=== PATIENT | female | born 1945 | race Caucasian/White ===

== ENCOUNTER 2017-02-23 12:24 | Observation (INO) | payer OTHER, BC ==
[2017-02-23] MEDS ORDERED: LIDOCAINE 5% 1 EA PATCH TD ONE (13:49)
--- NOTE | 2017-02-23 13:51 | EDPHY ---
H & P Time Seen by Provider: 02/23/17 13:21 HPI/ROS: CHIEF COMPLAINT: Neck pain HISTORY OF PRESENT ILLNESS: This 71-year-old woman was seen 3 times for headache in the beginning of January and ultimately diagnosed with a clot in her transverse sinus on MRI. She was hospitalized at [facility] and ultimately discharged on January 24 and warfarin. She was doing well and started getting worse on February 16 when she had a cough and upper respiratory infection for 3 days. Since February 19 he has had a new headache and neck pain and was diagnosed with of the subdural on CT. Her last imaging was in MRV on February 19 at [facility] which showed stable venous sinus clot and stable subdural. Today she presents with neck pain last 4 days. Her most comfortable position is flexed and she has pain on trying to extend her neck and hold her head upright. This pain is moderate at rest but severe with movement and does not radiate to arms or legs, but does go a little bit to her upper back. It is not associated with weakness or numbness in her arms or legs or fever. No new trauma. Her primary care physician called Dr. Nba Browne from Neurosurgery today, and she was asked to come the emergency department for evaluation. REVIEW OF SYSTEMS: Eye: no change in vision ENT: no sore throat Cardiac: no chest pain or syncope Pulmonary: no cough or SOB Abdomen: no vomiting, diarrhea, abdominal pain Musculoskeletal: HPI Skin: no rash Neuro: HPI, no vertigo. She has been a little bit off balance since she was diagnosed a month ago. Constitutional: no fever : no urinary symptoms A comprehensive 10 point review of systems is otherwise negative aside from elements mentioned in the history of present illness. PAST MEDICAL HISTORY: Includes arthritis, asthma, GERD, hypertension, irritable bowel, breast cancer. Social history: Here with her who is a retired Dr. General Appearance: Alert and conversant, cooperative. Eyes: No scleral icterus. ENT, Mouth: Normal mucous membranes. Respiratory: Normal respiratory effort, breath sounds equal, lungs are clear to auscultation. Cardiovascular: Regular rate and rhythm. Gastrointestinal: Abdomen is soft and non tender. Neurological: Alert and oriented x3. Normally conversant. Face symmetric, normal movement and sensation in all extremities. Normal strength in deltoid, triceps, biceps, wrist extensors, intrinsics. Patellar reflexes not detectable , but the patient has bilateral knee replacement. Ankle reflexes 1+, toes downgoing, no clonus. Skin: Warm and dry, no rashes. Musculoskeletal: Patient's neck is flexed and it is painful with active or passive extension. Psychiatric: Not agitated. Emergency Department course/MDM: 1351: Toshia, will have neurosurgery consult in ED. Lidocaine patch requested by patient, prescribed. 1435: Seen by Dr. Nba Browne the emergency department, recommends admission, CT angiogram of the head and neck, MRI of the cervical spine to evaluate for spinal epidural hematoma. I think meningitis would be unlikely with the patient having most comfort with her neck flexed. 1607: Helgans, left side venous sinus thrombosis but otherwise angiography is negative for dissection or arterial stenosis. 1645: MRI shows disk herniation C4-5, no epidural hematoma, no cord compression ; Helgans. Smoking Status: Never smoked Constitutional: Initial Vital Signs Temperature (C) 36.5 C 02/23/17 12:40 Heart Rate 80 02/23/17 12:40 Respiratory Rate 16 02/23/17 12:40 Blood Pressure 105/74 02/23/17 12:40 O2 Sat (%) 96 02/23/17 12:40 O2 Delivery Mode Room Air Allergies/Adverse Reactions: Penicillins Allergy (Verified 02/23/17 12:44) scopolamine Allergy (Verified 02/23/17 12:44) Home Medications: Medication Instructions Recorded Acetaminophen [Acetaminophen Extra 500 - 1,000 mg PO TID PRN 02/23/17 Strength] Albuterol Sulfate [Proair Hfa] 8.5 gm IH DAILY PRN 02/23/17 Fluticasone Hfa 220 Mcg [Flovent 1 puffs IH DAILY PRN 02/23/17 220 MCG Hfa MDI (*)] HYDROcodone/CHLORPHEN P-STIREX 2.5 - 5 ml PO BID PRN 02/23/17 [Hydrocodone-Chlorphen ER Susp] Letrozole [Femara 2.5 mg (*)] 2.5 mg PO HS 02/23/17 Metoprolol Tartrate 25 mg PO BID 02/23/17 Pravastatin Sodium [Pravachol] 40 mg PO HS 02/23/17 Spironolactone [Aldactone 25 MG 25 mg PO DAILY 02/23/17 (*)] Topiramate [Topamax 25MG (*)] 25 mg PO BID 02/23/17 Warfarin Sodium [Coumadin 5MG (*)] 2.5 mg PO SUTUWETHSA@16 02/23/17 Warfarin Sodium [Coumadin 5MG (*)] 5 mg PO MOFR@1600 02/23/17 tiZANidine HCL [Zanaflex 2MG (*)] 2 mg PO BID 02/23/17 traMADol [Ultram 50 mg (*)] 50 mg PO Q6 PRN 02/23/17 Medical Decision Making - Diagnostics Imaging Results: Imaging Impressions Head CTA 02/23/17 14:40 Impression: 1. Thrombosis of the left transverse sinus and nonocclusive thrombus in the left sigmoid sinus. 2. Remainder of the intracranial venous system is patent. 3. Normal intracranial arterial circulation. No aneurysm or evidence of embolic disease. Findings discussed with Emergency Department physician, Mago Houston NP, on 02/23/2017 at 1609 hours. Neck CTA 02/23/17 14:40 Impression: Widely patent carotid and vertebral arteries. No acute dissection or occlusion. Measurement of carotid stenosis is based on the residual internal carotid diameter with [place] Symptomatic Carotid Endarterectomy Trial (NASCET) based stenosis levels. Findings discussed with Emergency Department physician, Dr. Paco Castano on [address] 02/23/17 14:44 Impression: 1. Minimal residual subdural blood along the posterior interhemispheric falx and left cerebellar tentorium. 2. No epidural hematoma, intraparenchymal hemorrhage, or mass effect. Findings discussed with Emergency Department physician, Dr. Paco Castano, on February 23, 2017 at 1554. Differential Diagnosis: Differential considered including but not limited to neck vessel dissection, muscle spasm, meningismus or meningitis, epidural spinal hematoma Consult/Admit Bed Type: [place] [address] - Data Points Laboratory Results: Laboratory Results 02/23/17 14:48 02/23/17 14:48 02/23/17 02/23/17 02/23/17 14:48 14:48 14:48 WBC 8.69 10^3/uL 10^3/uL (3.80-9.50) RBC 4.28 10^6/uL 10^6/uL (4.18-5.33) Hgb 14.3 g/dL g/dL (12.6-16.3) POC Hgb Hct 41.4 % % (38.0-47.0) POC Hct MCV 96.7 fL fL (81.5-99.8) MCH 33.4 pg pg (27.9-34.1) MCHC 34.5 g/dL g/dL (32.4-36.7) RDW 13.3 % % (11.5-15.2) Plt Count 314 10^3/uL 10^3/uL (150-400) MPV 8.8 fL fL (8.7-11.7) Neut % (Auto) 68.8 % % (39.3-74.2) Lymph % (Auto) 21.4 % % (15.0-45.0) [place] % (Auto) 6.7 % % (4.5-13.0) Eos % (Auto) 2.3 % % (0.6-7.6) Baso % (Auto) 0.5 % % (0.3-1.7) Nucleat RBC Rel Count 0.0 % % (0.0-0.2) Absolute Neuts (auto) 5.98 10^3/uL 10^3/uL (1.70-6.50) Absolute Lymphs (auto) 1.86 10^3/uL 10^3/uL (1.00-3.00) Absolute Monos (auto) 0.58 10^3/uL 10^3/uL (0.30-0.80) Absolute Eos (auto) 0.20 10^3/uL 10^3/uL (0.03-0.40) Absolute Basos (auto) 0.04 10^3/uL 10^3/uL (0.02-0.10) Absolute Nucleated RBC 0.00 10^3/uL 10^3/uL (0-0.01) Immature Gran % 0.3 % % (0.0-1.1) Immature Gran # 0.03 10^3/uL 10^3/uL (0.00-0.10) PT 27.3 SEC H SEC (12.0-15.0) INR 2.50 H (0.83-1.16) POC Sodium Sodium 134 mEq/L mEq/L (134-144) POC Potassium Potassium 4.5 mEq/L mEq/L (3.5-5.2) POC Chloride Chloride 99 mEq/L mEq/L (97-110) Carbon Dioxide 22 mEq/l mEq/l (22-31) Anion Gap 13 mEq/L mEq/L (8-16) POC BUN BUN 22 mg/dL mg/dL (7-23) Creatinine 0.8 mg/dL mg/dL (0.6-1.0) POC Creatinine Estimated GFR > 60 Glucose 77 mg/dL mg/dL (70-100) POC Glucose Calcium 9.8 mg/dL mg/dL (8.5-10.4) 02/23/17 14:45 WBC RBC Hgb POC Hgb 15.3 gm/dL gm/dL (12.6-16.3) Hct POC Hct 45 % % (38-47) MCV MCH MCHC RDW Plt Count MPV Neut % (Auto) Lymph % (Auto) [place] % (Auto) Eos % (Auto) Baso % (Auto) Nucleat RBC Rel Count Absolute Neuts (auto) Absolute Lymphs (auto) Absolute Monos (auto) Absolute Eos (auto) Absolute Basos (auto) Absolute Nucleated RBC Immature Gran % Immature Gran # PT INR POC Sodium 135 mEq/L mEq/L (134-144) Sodium POC Potassium 4.1 mEq/L mEq/L (3.3-5.0) Potassium POC Chloride 101 mEq/L mEq/L (97-110) Chloride Carbon Dioxide Anion Gap POC BUN 23 mg/dL mg/dL (7-23) BUN Creatinine POC Creatinine 0.8 mg/dL mg/dL (0.6-1.0) Estimated GFR Glucose POC Glucose 80 mg/dL mg/dL (70-100) Calcium Medications Given: Discontinued Medications Lidocaine (Lidoderm 5%) 1 ea TD EDNOW ONE Stop: 02/23/17 13:50 Last Admin: 02/23/17 14:07 Dose: 1 ea Point of Care Test Results: 02/23/17 14:45 POC Sodium 135 POC Potassium 4.1 POC Chloride 101 POC BUN 23 POC Creatinine 0.8 POC Glucose 80 Departure - Departure Disposition: [facility] Inpatient Acute Clinical Impression: Neck pain Condition: Good
[2017-02-23] MEDS ORDERED: IOPAMIDOL (ISOVUE 370) 100 ML BTL IV ONE (14:56)
[2017-02-23 15:00] LABS: % IMMATURE GRANULYOCYTES 0.3 % (0.0-1.1); ABSOLUTE IMMATURE GRANULOCYTES 0.03 10^3/uL (0.00-0.10); ADD DIFF? NO; ADD MORPH? NO; ADD SCAN? NO; ATYPICAL LYMPHOCYTE FLAG 0 (0-99); FRAGMENT RBC FLAG 0 (0-99); HEMATOCRIT 41.4 % (38.0-47.0); HEMOGLOBIN 14.3 g/dL (12.6-16.3); LEFT SHIFT FLG 0 (0-99); LIPEMIA HEMOLYSIS FLAG 90 (0-99); MEAN CELL HEMOGLOBIN 33.4 pg (27.9-34.1); MEAN CELL HEMOGLOBIN CONCENTR. 34.5 g/dL (32.4-36.7); MEAN CELL VOLUME 96.7 fL (81.5-99.8); MEAN PLATELET VOLUME 8.8 fL (8.7-11.7); PLATELET CLUMPS FLAG 0 (0-99); PLATELET COUNT 314 10^3/uL (150-400); RED BLOOD CELL COUNT 4.28 10^6/uL (4.18-5.33); RED CELL DISTRIBUTION WIDTH 13.3 % (11.5-15.2)
[2017-02-23 15:09] LABS: ANION GAP 13 mEq/L (8-16); CALCIUM 9.8 mg/dL (8.5-10.4); CARBON DIOXIDE 22 mEq/l (22-31); CHLORIDE 99 mEq/L (97-110); CREATININE 0.8 mg/dL (0.6-1.0); GLOMERULAR FILTRATION RATE > 60; GLUCOSE 77 mg/dL (70-100); POTASSIUM 4.5 mEq/L (3.5-5.2); SODIUM 134 mEq/L (134-144)
[2017-02-23 15:10] LABS: INR 2.5 (0.83-1.16); PROTIME(PATIENT) 27.3 SEC (12.0-15.0)
[2017-02-23] MEDS ORDERED: LORazepam 0.5 MG TAB PO PRN (15:18)
[2017-02-23] MEDS ORDERED: LORazepam 2 MG/ML INJ IVP PRN (15:18)
[2017-02-23] MEDS ORDERED: ONDANSETRON 4 MG/2 ML VIAL IVP PRN (15:18)
[2017-02-23] MEDS ORDERED: oxyCODONE IR 5 MG TAB PO PRN (15:18)
[2017-02-23] MEDS ORDERED: ONDANSETRON DISINTEGRATING 4 MG TAB PO PRN (15:18)
[2017-02-23] MEDS ORDERED: ALBUTEROL 3 ML DEYVIAL IH PRN (15:18)
[2017-02-23] MEDS ORDERED: methylPREDNISolone SOD SUCC 125 MG/2 ML VIAL IVP ONE (16:54)
[2017-02-23] MEDS: ACETAMINOPHEN 325 MG TAB PO PRN (17:19)
[2017-02-23] MEDS ORDERED: FLUTICASONE HFA 220 MCG MDI IH PRN (17:24)
[2017-02-23] MEDS ORDERED: traMADol 50 MG TAB PO PRN (17:24)
[2017-02-23] MEDS ORDERED: HYDROcodone/CPM TUSSIONEX 5 ML UDSYR PO PRN (17:24)
--- NOTE | 2017-02-23 17:30 | PDGENHP ---
History and Physical - Chief Complaint neck pain - History of Present Illness This 71-year-old woman was seen 3 times for headache in the beginning of January and ultimately diagnosed with a clot in her transverse sinus on MRI. She was hospitalized at [facility] and ultimately discharged on January 24 and warfarin. She was doing well and started getting worse on February 16 when she had a cough and upper respiratory infection for 3 days. Since February 19 he has had a new headache and neck pain and was diagnosed with of the subdural on CT. Her last imaging was in MRV on February 19 at [facility] which showed stable venous sinus clot and stable subdural. She presented to the ER today with neck pain x [address] Browne with neurosurgery has seen her in the E.D. and MRI Head/neck and CTA Head/neck are pending. She continue on coumadin. INR is therapeutic. Her most comfortable position is flexed and she has pain on trying to extend her neck and hold her head upright. This pain is moderate at rest but severe with movement and does not radiate to arms or legs, but does go a little bit to her upper back. It is not associated with weakness or numbness in her arms or legs or fever. No new trauma. She also reports a cough x several days. She has a hx of asthma. She does not feel SOB. she has a non productive cough. No Chest pain PMHx: Venous sinus thrombosis, Subdural hematoma, chronic anticoagulation, asthma, gout PSHx: bilateral knee surgeries Soc: no tobacco, social ETOH. . is a retired physician FmHx: MS History Information - Allergies/Home Medication List Allergies/Adverse Reactions: Penicillins Allergy (Verified 02/23/17 12:44) scopolamine Allergy (Verified 02/23/17 12:44) Home Medications: Acetaminophen [Acetaminophen Extra Strength] 500 - 1,000 mg PO TID PRN 02/23/17 [Last Taken Unknown] Albuterol Sulfate [Proair Hfa] 8.5 gm IH DAILY PRN 02/23/17 [Last Taken Unknown] Fluticasone Hfa 220 Mcg [Flovent 220 MCG Hfa MDI (*)] 1 puffs IH DAILY PRN 02/23 [Last Taken Unknown] HYDROcodone/CHLORPHEN P-STIREX [Hydrocodone-Chlorphen ER Susp] 2.5 - 5 ml PO BID PRN 02/23/17 [Last Taken 10/19/17] Letrozole [Femara 2.5 mg (*)] 2.5 mg PO HS 02/23/17 [Last Taken 02/22/17] Metoprolol Tartrate 25 mg PO BID 02/23/17 [Last Taken 02/23/17] Pravastatin Sodium [Pravachol] 40 mg PO HS 02/23/17 [Last Taken 02/22/17] Spironolactone [Aldactone 25 MG (*)] 25 mg PO DAILY 02/23/17 [Last Taken ] Topiramate [Topamax 25MG (*)] 25 mg PO BID 02/23/17 [Last Taken 02/23/17] Warfarin Sodium [Coumadin 5MG (*)] 2.5 mg PO SUTUWETHSA@16 02/23/17 [Last Taken 02/22/17] Warfarin Sodium [Coumadin 5MG (*)] 5 mg PO MOFR@1600 02/23/17 [Last Taken ] tiZANidine HCL [Zanaflex 2MG (*)] 2 mg PO BID 02/23/17 [Last Taken 02/23/17] traMADol [Ultram 50 mg (*)] 50 mg PO Q6 PRN 02/23/17 [Last Taken 02/23/17] I have personally reviewed and updated: family history, medical history, social history - Social History Smoking Status: Never smoked Review of Systems Review of Systems: ROS: 10pt was reviewed & negative except for what was stated in HPI & below Physical Exam Physical Exam: Temp Pulse Resp BP Pulse Ox 36.3 C 89 16 98/63 L 91 L 02/23/17 16:57 02/23/17 16:57 02/23/17 16:57 02/23/17 16:57 02/23/17 16:57 Constitutional: no apparent distress, not in pain Eyes: PERRL Ears, Nose, Mouth, Throat: moist mucous membranes, hearing normal Cardiovascular: regular rate and rhythym, no murmur, rub, or gallop, systolic murmur Respiratory: no respiratory distress, no rales or rhonchi, reduced air movement , expiratory wheeze Gastrointestinal: normoactive bowel sounds, soft, non-tender abdomen Skin: warm Neurologic: AAOx3 Psychiatric: interacting appropriately, not anxious, not encephalopathic Lab Data & Imaging Review 02/23/17 14:48 02/23/17 14:48 WBC 8.69 10^3/uL (3.80-9.50) 02/23/17 14:48 RBC 4.28 10^6/uL (4.18-5.33) 02/23/17 14:48 Hgb 14.3 g/dL (12.6-16.3) 02/23/17 14:48 POC Hgb 15.3 gm/dL (12.6-16.3) 02/23/17 14:45 Hct 41.4 % (38.0-47.0) 02/23/17 14:48 POC Hct 45 % (38-47) 02/23/17 14:45 MCV 96.7 fL (81.5-99.8) 02/23/17 14:48 MCH 33.4 pg (27.9-34.1) 02/23/17 14:48 MCHC 34.5 g/dL (32.4-36.7) 02/23/17 14:48 RDW 13.3 % (11.5-15.2) 02/23/17 14:48 Plt Count 314 10^3/uL (150-400) 02/23/17 14:48 MPV 8.8 fL (8.7-11.7) 02/23/17 14:48 Neut % (Auto) 68.8 % (39.3-74.2) 02/23/17 14:48 Lymph % (Auto) 21.4 % (15.0-45.0) 02/23/17 14:48 [place] % (Auto) 6.7 % (4.5-13.0) 02/23/17 14:48 Eos % (Auto) 2.3 % (0.6-7.6) 02/23/17 14:48 Baso % (Auto) 0.5 % (0.3-1.7) 02/23/17 14:48 Nucleat RBC Rel Count 0.0 % (0.0-0.2) 02/23/17 14:48 Absolute Neuts (auto) 5.98 10^3/uL (1.70-6.50) 02/23/17 14:48 Absolute Lymphs (auto) 1.86 10^3/uL (1.00-3.00) 02/23/17 14:48 Absolute Monos (auto) 0.58 10^3/uL (0.30-0.80) 02/23/17 14:48 Absolute Eos (auto) 0.20 10^3/uL (0.03-0.40) 02/23/17 14:48 Absolute Basos (auto) 0.04 10^3/uL (0.02-0.10) 02/23/17 14:48 Absolute Nucleated RBC 0.00 10^3/uL (0-0.01) 02/23/17 14:48 Immature Gran % 0.3 % (0.0-1.1) 02/23/17 14:48 Immature Gran # 0.03 10^3/uL (0.00-0.10) 02/23/17 14:48 PT 27.3 SEC (12.0-15.0) H 02/23/17 14:48 INR 2.50 (0.83-1.16) H 02/23/17 14:48 POC Sodium 135 mEq/L (134-144) 02/23/17 14:45 Sodium 134 mEq/L (134-144) 02/23/17 14:48 POC Potassium 4.1 mEq/L (3.3-5.0) 02/23/17 14:45 Potassium 4.5 mEq/L (3.5-5.2) 02/23/17 14:48 POC Chloride 101 mEq/L (97-110) 02/23/17 14:45 Chloride 99 mEq/L (97-110) 02/23/17 14:48 Carbon Dioxide 22 mEq/l (22-31) 02/23/17 14:48 Anion Gap 13 mEq/L (8-16) 02/23/17 14:48 POC BUN 23 mg/dL (7-23) 02/23/17 14:45 BUN 22 mg/dL (7-23) 02/23/17 14:48 Creatinine 0.8 mg/dL (0.6-1.0) 02/23/17 14:48 POC Creatinine 0.8 mg/dL (0.6-1.0) 02/23/17 14:45 Estimated GFR > 60 02/23/17 14:48 Glucose 77 mg/dL (70-100) 02/23/17 14:48 POC Glucose 80 mg/dL (70-100) 02/23/17 14:45 Calcium 9.8 mg/dL (8.5-10.4) 02/23/17 14:48 Assessment & Plan Assessment: #Neck Pain #Recent Venous Sinus Thrombosus, on Coumadin with therapeutic INR, with recent subdural hematoma #Cough with hx of asthma, with likely, asthma exacerbation Plan: Admit NS has ordered imaging and they are c/w foreaminal stenosis at C4/5, no epidural hematoma, resolving SDH, thrombosis of Left transverse sinus Steroids have been started by NS and these should also help with her asthma PT/OT Cont Coumadin Pain/symptom mgmt Full Code (confirmed today)
[2017-02-23] MEDS ORDERED: WARFARIN SODIUM 2.5 MG TAB PO ONE (19:45)
[2017-02-23] MEDS: METOPROLOL TARTRATE 25 MG TAB PO SCH (20:18)
[2017-02-23] MEDS: tiZANidine HCL 2 MG TAB PO SCH (20:19)
--- NOTE | 2017-02-23 20:44 | GCON ---
[f rep st] CONSULTATION EMERGENCY ROOM CONSULTATION DATE OF CONSULTATION: 02/23/2017 CHIEF COMPLAINT: Unable to raise head due to extreme pain. HISTORY OF PRESENT ILLNESS: The patient is a 71-year-old female who was having some headaches in the early part of January. She was diagnosed with a dural sinus thrombosis, which involved the proximal left internal jugular vein, sigmoid sinus, and transverse sinuses. She received treatment at the [facility], where she was heparinized and placed on Coumadin therapy. On February 17, she was experiencing an episode of severe coughing for approximately 3 days due to a respiratory infection. She developed a new headache on February 19. Via CT scan of the brain was diagnosed with a left tentorium subdural hematoma. Her Coumadin was held for [address] scan of the brain the following day was stable, and she was restarted on her Coumadin. Today, she presents with severe neck pain for approximately 3 or 4 days, in which she finds it very difficult to raise her head off her chest due to the pain. She has very limited range of motion. She denies any upper extremity radicular symptoms. She denies any weakness in her upper extremities or numbness. The patient's does note that she was somewhat confused yesterday, which they may attribute to some newly prescribed medications. REVIEW OF SYSTEMS: A 10-point review of systems was reviewed and negative aside from what was mentioned in the HPI. PAST MEDICAL HISTORY: Irritable bowel syndrome, asthma, which she does not receive treatment for, ventricular tachycardia, history of breast cancer with complete remission, viral encephalopathy as a child. CURRENT MEDICATIONS: Metoprolol 25 mg twice daily, Coumadin 2.5 mg 5 days a week, and Coumadin 5 mg on Mondays and Fridays, pravastatin, Tylenol as needed, tramadol, Topamax, Zanaflex, cough syrup with hydrocodone, and spironolactone. PAST SURGICAL HISTORY: Bilateral total knee arthroplasty, cavernous hemangioma removed from the right leg, lipoma removed from the right leg, tonsillectomy and adenectomy, bilateral breast reduction. FAMILY HISTORY: Mother and father do not have any significant history related to clotting disorder, other than her father had a thrombus in his legs, which was followed after having a cast removed. SOCIAL HISTORY: The patient is . She lives with her who is a retired subway repair supervisor/radiologist. She does not smoke cigarettes. ALLERGIES: Penicillin and scopolamine. PHYSICAL EXAM: VITAL SIGNS: Blood pressure is 105/74, heart rate is 80, respiratory rate is 16, oxygen saturation is 96% on room air, temperature is 36.5 degrees Celsius. HEENT: Head is normocephalic and atraumatic. Pupils are equal, round, and reactive to light. EOMI is intact. Full visual gonzalez by confrontation. Ears are patent. Nose is patent. NECK: Very rigid and predominantly in a position with her chin to her chest. Range of motion is very limited. The patient is unable to perform range of motion exercises due to pain. RESPIRATORY AND CARDIAC: Deferred. ABDOMEN: Soft and nontender. GENITOURINARY AND RECTAL: Deferred. NEUROLOGIC: The patient is awake, alert, oriented to name, place, location, date, time, and situation. Memory is intact to immediate past and current events. Speech there is no aphasia or dysphonia. Cranial nerves 2-12 are grossly intact. Motor the patient has 5/5 strength in all muscle groups in bilateral upper and lower extremities to include deltoids, biceps, triceps, brachioradialis, wrist flexion, extensors, glass vial bending conveyor feeder, intrinsic fingers, iliopsoas, quadriceps, hamstrings, plantar flexion, dorsiflexion and EHL testing. Sensation is grossly intact to light touch throughout all dermatomal distributions and bilateral lower extremities. Reflexes of biceps, triceps, brachioradialis, and knee jerks, ankle jerks are 2 + out of 4. Toes are downgoing bilaterally. Duane sign is negative. Babinski is negative, and there is no evidence of clonus. LABORATORY DATA: As of 02/23/2017: White blood cell count is 8.69, hemoglobin is 14.3, hematocrit is 41.4, platelets are 314. Previous imaging done at [facility] most recently on February 19, 2017, a CT of the brain without IV contrast demonstrated a small volume of left tentorial subdural hemorrhage without mass effect or midline shift. There was an asymmetric density in the right transverse sinus with dural venous sinus thrombosis, which was diagnosed in January 11, there was improved appearance of the left sigmoid sinus, which had decreased attenuation in comparison to the prior exam, which is probable improvement in the previously seen dural venous sinus thrombus in the setting of anticoagulation. ASSESSMENT: The patient is a 71-year-old female who was diagnosed with a dural sinus thrombosis on January 13, 2017. She was treated at [facility] with anticoagulation, and has been on Coumadin. On February 17 while she was having a 3 day coughing episode, she developed a sudden headache, and was diagnosed on February [address] scan of the left tentorial subdural hematoma. Her Coumadin was held on Monday. Repeat CT of the brain on Monday was stable, and she has been restarted on her Coumadin. Her last dose of her Coumadin was yesterday at 4:00 p.m. The patient presents today with difficulty raising her head off her chest due to extreme pain in the posterior aspect of her cervical spine. She denies any upper extremity symptoms, and does not have any weakness or abnormal reflexes on exam. Dr. Browne spoke with the patient and her , and we will order more imaging of both her brain and her cervical spine for further evaluation. Dr. Browne will also speak with Dr. Valencia regarding this patient, who is our vascular specialist at our practice. We will order a CT angiogram of her cervical spine and brain, an MRI without contrast of her brain and cervical spine, as well as a CT scan without contrast of her brain to evaluate the subdural hematoma. We will follow up and develop a plan of care following these imaging studies. The patient was seen and examined by myself and Dr. Amari Browne in the emergency room on February 23, 2017 at 2:00 p.m. /[id number]/MODL MTDD
[2017-02-23] MEDS ORDERED: PATCH REMOVAL 1 EA PATCH TD SCH ×2 (21:00)
[2017-02-23] MEDS ORDERED: PRAVASTATIN SODIUM 40 MG TAB PO SCH (21:00)
[2017-02-23] MEDS ORDERED: LETROZOLE 2.5 MG TAB PO SCH (21:00)
[2017-02-23] MEDS: TOPIRAMATE 25 MG TAB PO SCH (22:17)
[2017-02-24 04:59] VITALS: O2SAT 95
[2017-02-24 05:17] LABS: INR 2.54 (0.83-1.16); PROTIME(PATIENT) 27.6 SEC (12.0-15.0)
[2017-02-24 05:19] LABS: CALCIUM 9.7 mg/dL (8.5-10.4); CARBON DIOXIDE 22 mEq/l (22-31); CHLORIDE 102 mEq/L (97-110); CREATININE 0.7 mg/dL (0.6-1.0); GLOMERULAR FILTRATION RATE > 60; GLUCOSE 135 mg/dL (70-100); POTASSIUM 4.9 mEq/L (3.5-5.2)
[2017-02-24] MEDS: ACETAMINOPHEN 325 MG TAB PO PRN (06:34)
[2017-02-24] MEDS ORDERED: [UNRECOGNIZED DRUG - OTHER] PO PRN (06:55)
[2017-02-24] MEDS ORDERED: methylPREDNISolone 4 MG TAB PO SCH ×2 (07:30→13:00)
[2017-02-24 08:13] VITALS: RESP 14; TEMP 97.3
[2017-02-24] MEDS: tiZANidine HCL 2 MG TAB PO SCH (08:22)
[2017-02-24] MEDS: METOPROLOL TARTRATE 25 MG TAB PO SCH (08:30)
[2017-02-24] MEDS: TOPIRAMATE 25 MG TAB PO SCH (08:30)
[2017-02-24 08:31] VITALS: BP 103/68; PULSE 84
--- NOTE | 2017-02-24 08:33 | NEUSURGPN ---
Assessment/Plan: 71 y/o female with cervical disc C4/5. Improved this morning. -Recommended Medrol dose pack today, continue on discharge. -Okay to d/c home when cleared by medicine. Follow up in 2-[address] Browne's office -PT/OT -Optimize pain management -Please notify NS with any change in neuro/motor exam -Discussed with Dr. Browne Subjective: Neck pain and motion improved this morning. Objective: NAD A&Ox3 MAEx4 5/5 and equal in BUE and BLE. - Physician Discussed Patient with : [facility] Physical Exam - Vitals, I&O, Labs I and O 02/23/17 02/24/17 02/25/17 05:59 05:59 05:59 Intake Total 300 Output Total 850 Balance -850 300 Weight 79.379 kg Intake: Oral (ml) 300 Output: Urine (ml) 850 Toilet 850 Other: Intake Quantity Yes Sufficient Number of Voids Toilet 2 Vital Signs Temp Pulse Resp BP Pulse Ox 36.3 C 64 14 105/61 95 02/24/17 08:00 02/24/17 08:00 02/24/17 08:00 02/24/17 08:00 02/24/17 08:00 Laboratory Results 02/24/17 04:53 ICD10 Worksheet Patient Problems: Problems Problem Status Onset Neck pain Acute
[2017-02-24] MEDS ORDERED: SPIRONOLACTONE 25 MG TAB PO SCH (09:00)
[2017-02-24] MEDS ORDERED: LIDOCAINE 5% 1 EA PATCH TD SCH (09:00)
--- NOTE | 2017-02-24 09:58 | HOSPPROG ---
Hospitalist Progress Note Assessment/Plan: Zaynab is a 71 y/o woman who presented to the ER with neck pain x 4 days. She also reports of cough for several days, has underlying asthma. She was recently hospitalized at and diagnosed with a clot in her transverse sinus. She is on OAC for this. Since February 19, she has had anew headache and neck pain and was diagnosed with a subdural on CT. Today is my first encounter with her, chart reviewed. *neck pain -MRI of cervical spine shows at C4-C5 subligamentous disk herniation resulting in moderate central canal stenosis -neck CTA shows no occlusion, dissection, widely patent -neck pain much improved with Medrol dose pack *hx of subdural hematoma -head CT shows minimal residual subdural blood *recent dural sinus thrombosis -CT angiography shows thrombosis of the left transverse sinus and nonocclusive thrombus in the left sigmoid sinus -INR is therapeutic @2.5 *cough -likely asthma exacerbation *Plan: dc home / further f/u with neurosurgery Subjective: Zaynab is feeling much better today. Objective: Vital Signs Temp Pulse Resp BP Pulse Ox 36.3 C 84 14 103/68 95 02/24/17 08:00 02/24/17 08:30 02/24/17 08:00 02/24/17 08:30 02/24/17 08:00 Laboratory Results 02/24/17 04:53 02/23/17 02/24/17 02/25/17 05:59 05:59 05:59 Intake Total 300 Output Total 850 Balance -850 300 PT 27.6 SEC (12.0-15.0) H 02/24/17 04:53 INR 2.54 (0.83-1.16) H 02/24/17 04:53 - Physical Exam Constitutional: no apparent distress, appears nourished, not in pain Eyes: PERRL Ears, Nose, Mouth, Throat: hearing normal Cardiovascular: no murmur, rub, or gallop Respiratory: no respiratory distress Skin: warm Musculoskeletal: no muscle tenderness Neurologic: AAOx3 Psychiatric: interacting appropriately, not anxious ICD10 Worksheet Patient Problems: Problems Problem Status Onset Neck pain Acute
--- NOTE | 2017-02-24 12:05 | ASDISCHSUM ---
Discharge Information Plan Status:Home with No Needs Medically Cleared to Leave: Discharge Date:02/24/2017 11:44 AM CM D/C Disposition:Home, Routine, Self-Care ADT D/C Disposition:Home, Routine, Self-Care Projected Discharge Date:02/24/2017 11:44 AM Transportation at D/C: Discharge Delay Reason: Follow-Up Date:02/24/2017 11:44 AM Discharge Slot: Final Diagnosis: Placement Information Patient Contact Information Contact Name:RAMANA Relationship: Address: Work Phone: City: [facility] Phone: State/Zip Code: Email: Financial Information Financial Class: Primary Plan Desc:MEDICARE INPATIENT Primary Plan Number:[id number] Secondary Plan Desc: OUT OF STATE INDEMNITY Secondary Plan Number:[id number] Assessment Information Intervention Information Intervention Type:*Incorrect Registration Date of Service:02/24/2017 10:32 AM Patient Type:Inpatient Staff Member:ROSAURA Goddard Courtney Hours: Discipline: Severity: Comment:
--- NOTE | 2017-02-24 13:12 | GDS ---
[f rep st] DISCHARGE SUMMARY DISCHARGE DIAGNOSES: 1. Neck pain. 2. History of subdural hematoma. 3. Recent dural sinus thrombosis. 4. Cough. HISTORY OF PRESENT ILLNESS: Briefly, the patient is a 71-year-old woman who presented to the emergency room with neck pain for 4 days. She also had a cough for several days and has underlying asthma. She was recently hospitalized at [facility], and was diagnosed with a clot in her transverse sinus. She is on oral anticoagulation for this. Since February 19, she had a new headache and neck pain, and was diagnosed with a subdural on her CT prior to this admission. Today, she is markedly better. She has been placed on a Medrol Dosepak for her neck pain. She will further follow up with Neurology in the outpatient setting. HOSPITAL COURSE: 1. Neck pain. 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 She had a neck CTA, which showed no occlusion, dissection. It is widely patent. Her pain is much improved. 2. History of subdural hematoma. Repeat head CT shows minimal residual subdural blood. 3. Recent dural sinus thrombosis. A CT angiography shows thrombosis of the left transverse sinus, and nonocclusive thrombus in the left sigmoid sinus. Her INR is therapeutic at 2.5. 4. Cough, none further. This is likely secondary to asthma exacerbation. DISCHARGE CONDITION: Stable. Blood pressure is 103/68, O2 sats on room air 95% , respiratory rate is 14, pulse is 84, temperature 36.3 Celsius. MEDICATIONS AT DISCHARGE: Please see the EMR. Only new medications are Lidoderm patches and a Medrol Dosepak. DISCHARGE INSTRUCTIONS: 1. If she develops worsening headache, return to the ER. 2. Follow up with Dr. Browne in the outpatient setting. Greater than 30 minutes discharging and coordinating her care. /[id number]/MODL MTDD
[2017-02-24] MEDS ORDERED: WARFARIN SODIUM 5 MG TAB PO SCH (16:00)
[2017-02-24 19:40] LABS: ANION GAP 15 mEq/L (8-16); SODIUM 139 mEq/L (134-144)
[2017-02-25] MEDS ORDERED: methylPREDNISolone 4 MG TAB PO SCH ×2 (07:30→21:00)
[2017-02-25] MEDS ORDERED: WARFARIN SODIUM 5 MG TAB PO SCH (16:00)
[2017-02-26] MEDS ORDERED: methylPREDNISolone 4 MG TAB PO SCH (07:30)
[2017-02-27] MEDS ORDERED: methylPREDNISolone 4 MG TAB PO SCH (07:30)
[2017-02-28] MEDS ORDERED: methylPREDNISolone 4 MG TAB PO SCH (07:30)
[2017-03-01] MEDS ORDERED: methylPREDNISolone 4 MG TAB PO SCH (07:30)
== END 2017-02-24 11:44 | disposition home or self-care (01) ==
LOC: INTOOBSV 14:52 → F3N 16:47
PROVIDERS: ADMIT Family Medicine; ATTEND Student in an Organized Health Care Education/Training Program
DX: M50.221 Other cervical disc displacement at C4-C5 level (principal); I62.02 Nontraumatic subacute subdural hemorrhage; G08 Intracranial and intraspinal phlebitis and thrombophlebitis; Z79.01 Long term (current) use of anticoagulants; R05 Cough
CPT/HCPCS: 70450; 70496; 70498; 70551; 72141; 97161; 99285; G0378; G8978; G8979; G8980; Q9967; 82947-QW

== ENCOUNTER → 2017-04-12 | Outpatient (CLI) | payer OTHER, BC ==
[~2017-04-12] MED LIST: IOPAMIDOL (ISOVUE 370) 100 ML BTL IV ONE; IOPAMIDOL (ISOVUE-300) 100 ML BTL ONE
== END ==
LOC: FIMAGING 14:50
PROVIDERS: ATTEND Psychiatry & Neurology Neurology
DX: R51 Headache (principal)
CPT/HCPCS: 70470; 70496; Q9967

== ENCOUNTER → 2017-05-12 | Outpatient (CLI) | payer OTHER, BC | LOC: FIMAGING 19:26 | PROVIDERS: ATTEND Psychiatry & Neurology Neurology | DX: R20.2 Paresthesia of skin (principal); M50.322 Other cervical disc degeneration at C5-C6 level; M47.892 Other spondylosis, cervical region ==